=== PATIENT | female | born 1995 | race Two or more races ===

== ENCOUNTER 2020-02-21 05:15 | Inpatient (IN) ==
[2020-02-21] MEDS ORDERED: D5 1/2 NS 1000 ML 1,000 ML IV ONE (05:44)
[2020-02-21] MEDS ORDERED: D5 1/2 NS 1000 ML 1,000 ML IV SCH ×2 (06:00→07:00)
[2020-02-21 06:03] LABS: BASOPHILS # (AUTO) 0.1 X10^3/uL (0.0-0.1); BASOPHILS % (AUTO) 0.9 % (0.2-1.0); EOSINOPHILS # (AUTO) 0.6 x10^3/uL (0.0-0.2); EOSINOPHILS % (AUTO) 7.2 % (0.9-2.9); HEMATOCRIT 35.4 % (36.0-47.0); LYMPHOCYTES # (AUTO) 2.4 X10^3/uL (1.3-2.9); LYMPHOCYTES % (AUTO) 30.6 % (21.0-51.0); MEAN CORPUSCULAR HEMOGLOBIN 28.8 pg (27.0-34.0); MEAN CORPUSCULAR HGB CONC 33.9 g/dL (33.0-35.0); MEAN PLATELET VOLUME 8.4 fL (7.4-11.0); MONOCYTES # (AUTO) 0.4 x10^3/uL (0.3-0.8); MONOCYTES % (AUTO) 5.8 % (0.0-13.0); NEUTROPHILS # (AUTO) 4.3 x10^3/uL (2.2-4.8); NEUTROPHILS % (AUTO) 55.5 % (42.0-75.0); PLATELET COUNT 252 X10^3/uL (150.0-450.0); RED BLOOD COUNT 4.16 X10^6/uL (3.5-5.4); RED CELL DISTRIBUTION WIDTH 15.7 % (11.6-16.5); WHITE BLOOD COUNT 7.7 X10^3/uL (3.6-10.0)
[2020-02-21 06:16] LABS: AMNISURE ROM TEST NO MEMBRANES RUPTURE (NO RUPTURE)
[2020-02-21] MEDS ORDERED: PHENERGAN INJ 25 MG IM PRN ×2 (06:24→08:00)
[2020-02-21] MEDS ORDERED: PITOCIN IVP ONE (06:24)
[2020-02-21] MEDS ORDERED: D5LR 1L W PITOCIN 10 UNITS/L 10 UNITS/1,000 ML BAG IV PRN (06:24)
[2020-02-21] MEDS ORDERED: NUBAIN INJ 200 MG VIAL MULTIDOSE IVP PRN (06:24)
[2020-02-21] MEDS ORDERED: REGLAN INJ 10 MG VIAL IVP PRN (06:24)
[2020-02-21 06:32] LABS: BLOOD UREA NITROGEN 3 mg/dL (7-18); CALCIUM 8.2 mg/dL (8.5-10.1); CARBON DIOXIDE 24.5 mmol/L (21-32); CHLORIDE 104 mmol/L (98-107); CREATININE 0.71 mg/dL (0.55-1.02); SODIUM 139 mmol/L (136-145); eGFR NON BLACK RACES > 60 (>60)
[2020-02-21] MEDS ORDERED: AMPICILLIN VIAL 2 GRAM ONE (06:34)
[2020-02-21] MEDS ORDERED: D5 1/2 NS 1L W PITOCIN 20 UNITS/L 20 UNITS/1,000 ML BAG IV ONE (06:34)
[2020-02-21] MEDS ORDERED: PITOCIN ONE (06:34)
[2020-02-21] MEDS ORDERED: NS 100 ML IV 100 ML IV ONE (06:34)
[2020-02-21] MEDS ORDERED: AMPICILLIN VIAL 2 GRAM 2 G in NS 100 ML IV + SPIKE MINIBAG* 100 ML IV SCH (07:00)
[2020-02-21] MEDS ORDERED: MOTRIN TAB 800 MG PO PRN (08:00)
[2020-02-21] MEDS ORDERED: D5 1/2 NS 1000 ML 1,000 ML with PITOCIN 20 UNITS IV SCH ×2 (08:00)
[2020-02-21] MEDS ORDERED: AMBIEN PO PRN (08:45)
[2020-02-21] MEDS ORDERED: DERMOPLAST PAIN RELIEF SPRAY TOP PRN (08:45)
[2020-02-21] MEDS ORDERED: MILK OF MAGNESIA PO PRN (08:45)
[2020-02-21] MEDS ORDERED: AMPICILLIN VIAL 1 GRAM 1 G in NS 50 ML IV + SPIKE MINIBAG* 50 ML IV SCH (10:26)
[2020-02-21] MEDS: PRENATAL PLUS PO SCH (10:30)
[2020-02-22 05:39] LABS: HEMATOCRIT 35.7 % (36.0-47.0); HEMOGLOBIN 12.1 g/dL (12.0-16.0)
[2020-02-22 08:07] VITALS: BP 106/57
[2020-02-22] MEDS: PRENATAL PLUS PO SCH (08:59)
== END 2020-02-22 12:48 | disposition home or self-care (01) | DRG 807 ==
LOC: ER 05:16 → LD 06:14 → MED/SURG 08:45
PROVIDERS: ADMIT Obstetrics & Gynecology Obstetrics; ATTEND Obstetrics & Gynecology Obstetrics
DX: Z3A.39 39 weeks gestation of pregnancy; Z37.0 Single live birth; B95.1 Streptococcus, group B, as the cause of diseases classified elsewhere; O26.899 Other specified pregnancy related conditions, unspecified trimester; O99.824 Streptococcus B carrier state complicating childbirth
CPT/HCPCS: 36415; 59409; 80048; 83020; 83021; 84112; 85014; 85018; 85025; 86592; 86701; 86703; 86850; 86900; 86901; 87389; 96365; 99284; A4216; A4222; J0290; J2590; J7050; S0197; S5010